=== PATIENT | female | born 2000 | race Hispanic/Latino ===

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

== ENCOUNTER 2021-03-02 10:46 | Outpatient (CLI) | payer BC ==
[~2021-03-02 10:46] MED LIST: Iopamidol 370 76% 100 ML VIAL ONE
== END 2021-03-02 10:47 | disposition home or self-care (01) ==
LOC: CT 10:46
PROVIDERS: ATTEND Internal Medicine
DX: R31.9 Hematuria, unspecified (principal); N30.90 Cystitis, unspecified without hematuria
CPT/HCPCS: 74178; Q9967